=== PATIENT | male | born 1950 | race Caucasian/White ===

== ENCOUNTER 2021-04-29 08:19 | Day surgery (SDC) | payer MEDICARE ==
[~2021-04-29] VITALS: Ht 185.4 cm; Wt 91.3 kg
[2021-04-29] MEDS ORDERED: CIALIS5 MG PO (08:51)
[2021-04-29 09:25] VITALS: BP 115/74; PULSE 63; TEMP 98.7
[2021-04-29 09:55] VITALS: BP 105/65; PULSE 58; TEMP 97.5
--- NOTE | 2021-04-29 09:55 | NUR ---
Pt returned via cart to recliner in [place] [id number]. Pts , Mirna, present. Pt A&O. VSS-see flowsheet. Given warm blanket and legs elevated in recliner. Pt given pudding, muffin and OJ per request. Call light in reach.
[2021-04-29 10:10] VITALS: BP 114/69; PULSE 53
[2021-04-29 10:25] VITALS: BP 100/52; PULSE 55
--- NOTE | 2021-04-29 10:45 | NUR ---
Pt tolerated food and drink. VS remain stable-see flowsheet. Dr Turner in to visit with pt and his spouse post procedure. IV removed and sterile 2x2 and coban applied. Discharge teaching completed, pt and spouse verbalized understanding. Pt taken via wheelchair to discharge home via private vehicle with spouse to drive.
== END 2021-04-29 10:45 | disposition home or self-care (01) ==
LOC: SDCO 08:19
DX: Z12.11 Encounter for screening for malignant neoplasm of colon (principal); D12.4 Benign neoplasm of descending colon; K64.1 Second degree hemorrhoids; Z98.0 Intestinal bypass and anastomosis status
CPT/HCPCS: J2704; J3010; J7120